=== PATIENT | female | born 1990 | race African-American/Black ===

== ENCOUNTER 2018-09-22 08:21 | Emergency (ER) | payer OTHER ==
[~2018-09-22] VITALS: Ht 165.1 cm; Wt 62.8 kg
--- NOTE | 2018-09-22 08:25 | NUR ---
PT AMBULATES TO BED 8
[2018-09-22 08:34] VITALS: BP 111/61
--- NOTE | 2018-09-22 08:45 | NUR ---
27/ F BIB SELF, C/O IF MID STERNAL CHEST WALL PAIN, PATIENT STATES THAT PAIN WORSENS WITH TAKING DEEP BREATHS, 8/10 INTERMITTENT PRESSURE, RELIEVED BY INACTIVITY. DENIES SOB, NUMBNESS, OR PAIN RADIATING TO OTHER LOCATIONS. LUNG SOUNDS ARE CLEAR. PATIENT IS 8 WEEKS , LAST MENTRUAL 07/16/18, . AOX4, STEADY GAIT, SAFETY PRECUATIONS IN PLACE.
--- NOTE | 2018-09-22 08:48 | NUR ---
Patient being evaluated by physician at bedside.
[2018-09-22] MEDS ORDERED: ACETAMINOPHEN EXTRA STRENGTH 500 MG TAB PO ONE (09:10)
--- NOTE | 2018-09-22 09:50 | NUR ---
STILL AWAITING ULTRASOUND. ULTRASOUND WAS CALLED, ACTIVELY OCCUPIED IN A PROCEDURE.
[2018-09-22 10:07] LABS: APPEARANCE,URINE CLEAR (CLEAR); BILIRUBIN,URINE NEGATIVE (NEGATIVE); BLOOD, URINE NEGATIVE (NEGATIVE); COLOR,URINE YELLOW (YELLOW); LEUKOCYTE ESTERASE ,URINE NEGATIVE (NEGATIVE); NITRITE, URINE NEGATIVE (NEGATIVE); UGLUCOSE NEGATIVE (NEGATIVE)
--- NOTE | 2018-09-22 10:36 | NUR ---
ULTRASOUND AT BEDSIDE.
[2018-09-22 11:08] VITALS: BP 111/61
== END 2018-09-22 11:05 | disposition home or self-care (01) ==
LOC: MED 08:21
DX: R07.89 Other chest pain (principal); R11.0 Nausea
CPT/HCPCS: 76801; 81003; 81025; 93005; 99284; Q0092